=== PATIENT | female | born 1975 | race Caucasian/White ===

== ENCOUNTER 2017-02-16 13:54 | Emergency (ER) | payer SELFPAY ==
[~2017-02-16 13:54] MED LIST: CIPRO500 M2 PO; CLINDAMYCIN HC300 M2 PO; MOTRIN800 MG PO; NORCO 5-325 TA1 EACH PO; PERCOCET 5/3251 TAB PO; [UNRECOGNIZED DRUG - REMARK]
[2017-02-16] MEDS ORDERED: TRAMADOL HCL50 M2 PO (17:26)
[2017-02-16] MEDS ORDERED: CYCLOBENZAPRINE5 M1 PO (17:26)
== END 2017-02-16 17:55 ==
LOC: EDMED 13:54
DX: S16.1XXA Strain of muscle, fascia and tendon at neck level, initial encounter (principal); F17.210 Nicotine dependence, cigarettes, uncomplicated; G43.909 Migraine, unspecified, not intractable, without status migrainosus; X58.XXXA Exposure to other specified factors, initial encounter
CPT/HCPCS: J2270; J2405